=== PATIENT | male | born 1945 | race American Indian/Alaskan Native ===

== ENCOUNTER 2017-05-19 12:53 | Outpatient (CLI) | payer MEDICARE ==
--- NOTE | 2017-05-19 13:55 | XRay Report ---
LEFT THUMB THREE VIEWS: 05/19/17 12:53:00 CLINICAL: Left thumb pain. 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 The rest of the digits are included on exam and are unremarkable. Normal soft tissues. IMPRESSION: 1. 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 2. 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 X-rays of the wrist may be helpful. 3. Moderate radiocarpal joint arthritis.
== END 2017-05-19 12:54 | disposition home or self-care (01) ==
LOC: SPVIMAG 12:53
PROVIDERS: ATTEND Internal Medicine
DX: M18.9 Osteoarthritis of first carpometacarpal joint, unspecified (principal)

== ENCOUNTER 2017-10-23 09:57 | Outpatient (CLI) | payer MEDICARE ==
--- NOTE | 2017-10-23 10:26 | XRay Report ---
Left hip 3 views: History: Left hip pain. Findings: There is mild narrowing noted of the hip joint. Sclerotic articular surfaces with osteophyte suggestive severe degenerative changes. No fracture. No soft tissue calcification. Impression: Severe degenerative changes left hip.
== END 2017-10-23 09:58 | disposition home or self-care (01) ==
LOC: SPVIMAG 09:57
PROVIDERS: ATTEND Orthopaedic Surgery Sports Medicine
DX: M16.12 Unilateral primary osteoarthritis, left hip (principal)